=== PATIENT | male | born 2000 | race Caucasian/White ===

== ENCOUNTER 2021-07-06 19:56 | Emergency (ER) ==
[~2021-07-06] VITALS: Ht 182.9 cm; Wt 119.1 kg
[2021-07-06 19:57] VITALS: BP 132/69
== END 2021-07-07 02:09 | disposition left against medical advice (07) ==
LOC: M ED 19:56
DX: Z53.21 Procedure and treatment not carried out due to patient leaving prior to being seen by health care provider (principal)

== ENCOUNTER 2023-03-20 14:37 | Emergency (ER) | payer BC ==
[~2023-03-20] VITALS: Ht 182.9 cm; Wt 108.0 kg
[2023-03-20] MEDS ORDERED: BOOSTRIX VACCINE (TETANUS/DIPHTH/ACEL. PERTUSSIS) 0.5ML SYR IM ONE (16:30)
[2023-03-20] MEDS ORDERED: CEPHALEXIN 500 MG CAP PO ONE (16:30)
[2023-03-20] MEDS ORDERED: CEPH500C PO (17:57)
[2023-03-20] MEDS ORDERED: CIPR-249 PO (18:02)
[2023-03-20 18:05] VITALS: BP 115/72; TEMP 98.4; O2SAT 98
== END 2023-03-20 18:07 | disposition home or self-care (01) ==
LOC: M ED 14:37
DX: S91.331A Puncture wound without foreign body, right foot, initial encounter (principal); S50.812A Abrasion of left forearm, initial encounter; W26.8XXA Contact with other sharp object(s), not elsewhere classified, initial encounter; Y92.009 Unspecified place in unspecified non-institutional (private) residence as the place of occurrence of the external cause

== ENCOUNTER → 2024-08-23 | Outpatient (REF) | payer OTHER ==
[~2024-08-23] MED LIST: CEPH500C PO; CIPR-249 PO
== END ==
LOC: M LAB REF 20:51
PROVIDERS: ATTEND Physician Assistant Medical
DX: R50.9 Fever, unspecified (principal); R05.9 Cough, unspecified